=== PATIENT | male | born 1945 | race African-American/Black ===

== ENCOUNTER 2017-01-08 19:13 | Emergency (ER) | payer MEDICARE, OTHER ==
[~2017-01-08] VITALS: Ht 177.8 cm; Wt 90.9 kg
[2017-01-08 19:15] VITALS: TEMP 97.7
[2017-01-08] MEDS ORDERED: ALDACTONE50 MG PO (20:27)
[2017-01-08] MEDS ORDERED: GLUCOPHAGE500 MG/TAB PO (20:27)
[2017-01-08] MEDS ORDERED: DIOVAN 80MG80 MG PO (20:27)
[2017-01-08] MEDS ORDERED: PROSCAR 5MG5 MG PO (20:28)
[2017-01-08] MEDS ORDERED: CARDURA 2MG2 MG PO (20:28)
[2017-01-08] MEDS ORDERED: CADUET 10 MG-401 TAB PO (20:29)
[2017-01-08] MEDS ORDERED: BYSTOLIC10 MG PO (20:29)
[2017-01-08] MEDS ORDERED: ASPIRIN 81M81 MG/TA2 PO (20:30)
[2017-01-08] MEDS ORDERED: ILOTYCIN5 MG/GM OU (20:39)
[2017-01-08 20:45] VITALS: BP 166/80; PULSE 72
== END 2017-01-08 20:46 | disposition home or self-care (01) ==
LOC: COL.ER 19:13
DX: T65.891A Toxic effect of other specified substances, accidental (unintentional), initial encounter (principal); H10.213 Acute toxic conjunctivitis, bilateral; H16.003 Unspecified corneal ulcer, bilateral; I10 Essential (primary) hypertension